=== PATIENT | female | born 1985 | race Caucasian/White ===

== ENCOUNTER 2021-12-13 01:52 | Inpatient (IN) | payer OTHER ==
[2021-12-13] VITALS (10 sets, daily range): BP systolic 119–152; BP diastolic 71–90
[~2021-12-13] VITALS: Ht 162.6 cm; Wt 85.8 kg
[2021-12-13] MEDS ORDERED: PRENTAB9 PO (02:43)
[2021-12-13] MEDS ORDERED: ACET325C5 PO (02:43)
[2021-12-13] MEDS ORDERED: PENICILLIN G POTASSIUM IV 5 MU in D5W MINI-BAG PLUS 100 ML IV STA (04:26)
[2021-12-13] MEDS ORDERED: LR 1,000 ML IV SCH (04:30)
[2021-12-13] MEDS ORDERED: OXYTOCIN DRIP 30 UNITS in IV 1 EA IV PRN ×4 (04:30)
[2021-12-13] MEDS ORDERED: BETAMETHASONE SOLUSPAN 6MG/ML 5ML VIAL (J0702 PER 3MG) IM SCH (04:30)
[2021-12-13 04:59] LABS: HEMATOCRIT 33.4 % (36.0-47.0); HEMOGLOBIN 11.4 g/dl (12.0-15.5); MEAN CORPUSCULAR HEMOGLOBIN 31.1 pg (27.0-33.0); MEAN CORPUSCULAR HGB CONC 34.1 g/dl (32.0-36.5); MEAN CORPUSCULAR VOLUME 91.3 fl (80.0-96.0); PLATELET COUNT, AUTOMATED 268 10^3/uL (150-450); RED BLOOD COUNT 3.66 10^6/uL (4.00-5.40); WHITE BLOOD COUNT 10.9 10^3/uL (4.0-10.0)
[2021-12-13] MEDS ORDERED: PROMETHAZINE INJ 25 MG/ML VIAL (J2550) IV ONE (05:50)
[2021-12-13] MEDS ORDERED: BUTORPHANOL 2 MG/ML INJ (J0595) IV ONE (05:50)
[2021-12-13] MEDS ORDERED: PENICILLIN G POTASSIUM IV 2.5 MU in IV 1 EA IV SCH (09:00)
[2021-12-13 09:33] LABS: CORD GAS ABE V -4.3; CORD GAS HCO3 V 20.3 MEQ/L; CORD GAS O2 SAT V 83.5 %; CORD GAS PCO2 V 36.4 mmHg; CORD GAS PH V 7.365 UNITS; CORD GAS PO2 V 37.8 mmHg; CORD GAS SBC V 20.6 MEQ/L; CORD GAS TCO2 V 21.5 MEQ/L
[2021-12-13 09:34] LABS: CORD GAS ABE A -5.1; CORD GAS O2 SAT A 62.8 %; CORD GAS PCO2 A 48.3 mmHg; CORD GAS PH A 7.276 UNITS; CORD GAS PO2 A 28.1 mmHg; CORD GAS SBC A 19.5 MEQ/L; CORD GAS TCO2 A 23.5 MEQ/L
[2021-12-13] MEDS ORDERED: ONDANSETRON 4MG/2ML VIAL IV PRN (10:10)
[2021-12-13] MEDS ORDERED: MEASLES,MUMPS,RUBELLA VACCINE INJ (MMR-II) (90707) SC SCH (10:10)
[2021-12-13] MEDS ORDERED: DIBUCAINE 1% OINTMENT 30GM TOP PRN (10:10)
[2021-12-13] MEDS ORDERED: ACETAMINOPHEN TAB 650MG DOSE (2X325MG) PO PRN (10:10)
[2021-12-13] MEDS ORDERED: METHYLERGONOVINE MALEATE 0.2 MG TAB PO PRN (10:10)
[2021-12-13] MEDS ORDERED: IBUPROFEN 600MG TAB PO PRN (10:10)
[2021-12-13] MEDS ORDERED: ANUSOL HC CREAM 30GM TOP PRN (10:10)
[2021-12-13] MEDS ORDERED: OXYTOCIN 30 UNITS IN 0.9% NaCl 500ML IV BAG (J2590) As Ordered ONE (10:20)
[2021-12-13] MEDS: IBUPROFEN 800 MG TAB PO PRN (10:25)
[2021-12-13] MEDS: DOCUSATE SODIUM 100MG CAPSULE PO SCH ×2 (12:00→22:03)
[2021-12-13] MEDS: PRENATAL VITAMINS CHEWABLE TABLET PO SCH (12:00)
[2021-12-14 06:09] VITALS: BP 134/74
[2021-12-14] MEDS: PRENATAL VITAMINS CHEWABLE TABLET PO SCH (08:08)
[2021-12-14] MEDS: DOCUSATE SODIUM 100MG CAPSULE PO SCH ×2 (08:08→22:15)
[2021-12-14 18:38] VITALS: BP 133/93
[2021-12-14] MEDS: ACETAMINOPHEN 500 MG TAB PO PRN (19:06)
[2021-12-15] MEDS ORDERED: ACET-683 PO (05:02)
[2021-12-15] MEDS ORDERED: IBUP80TA PO (05:02)
[2021-12-15] MEDS ORDERED: COLA100C5 PO (05:02)
[2021-12-15 06:00] VITALS: BP 134/89
[2021-12-15] MEDS: DOCUSATE SODIUM 100MG CAPSULE PO SCH (08:13)
[2021-12-15] MEDS: IBUPROFEN 800 MG TAB PO PRN (08:13)
[2021-12-15] MEDS: PRENATAL VITAMINS CHEWABLE TABLET PO SCH (08:13)
[2021-12-15] MEDS: ACETAMINOPHEN 500 MG TAB PO PRN (14:02)
== END 2021-12-15 14:15 | disposition home or self-care (01) | DRG 807 ==
LOC: M LDO 01:52 → M LDI 04:05 → M OBS 11:17
PROVIDERS: ADMIT Obstetrics & Gynecology; ATTEND Obstetrics & Gynecology
PROC: 10E0XZZ Delivery of Products of Conception, External Approach (ICD-10-PCS; principal; 2021-12-13)
DX: O42.013 Preterm premature rupture of membranes, onset of labor within 24 hours of rupture, third trimester (principal); Z37.0 Single live birth; Z3A.35 35 weeks gestation of pregnancy

== ENCOUNTER → 2022-11-08 | Outpatient (CLI) | payer OTHER ==
[~2022-11-08] MED LIST: ACET-683 PO; ACET325C5 PO; COLA100C5 PO; IBUP80TA PO; PRENTAB9 PO
== END ==
LOC: M RAD 10:10
PROVIDERS: ATTEND Advanced Practice Midwife
DX: O35.03X1 Maternal care for (suspected) central nervous system malformation or damage in fetus, choroid plexus cysts, fetus 1 (principal); Z3A.25 25 weeks gestation of pregnancy